=== PATIENT | female | born 2005 | race American Indian/Alaskan Native ===

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

== ENCOUNTER → 2025-09-19 | Outpatient (CLI) | payer OTHER ==
[2025-09-20 10:41] LABS: Chlamydia Trachomatis Urine NOT DETECTED (NOT DETECT); Neisseria Gonorrhoea Urine NOT DETECTED (NOT DETECT)
[2025-09-21 09:46] LABS: HIV 1,2 COMBO ANTIGEN/ANTIBODY Negative (Negative)
== END ==
LOC: LAB 11:45 → LAB SHORT 11:45
PROVIDERS: Nurse Practitioner Family
DX: Z11.59 Encounter for screening for other viral diseases (principal)
CPT/HCPCS: 87389; 87491; 87591